=== PATIENT | male | born 1940 | race Asian ===

== ENCOUNTER 2017-04-21 10:54 | Inpatient (IN) | payer OTHER ==
[2017-04-21] MEDS: METHYLPREDNISOLONE 125 MG INJ IV (11:48)
[2017-04-21] MEDS: SODIUM CHLORIDE 0.9% 1L BAG IV* (11:49)
[2017-04-21] MEDS: IPRATROPIUM (NEB) 0.5 MG/2.5 ML AMP INH (11:50)
[2017-04-21] MEDS: CEFEPIME 2GM/50 ML (PMX) 50 ML IVPB (11:50)
[2017-04-21] MEDS: ALBUTEROL 0.5% (NEB) 2.5 MG/0.5 ML AMP INH (11:51)
[2017-04-21 12:24] LABS: ABNORMAL IP MESSAGE 1; HEMATOCRIT 42.4 % (42.0-52.0); HEMOGLOBIN 14.4 g/dl (14.0-18.0); MEAN CORPUSCULAR HEMOGLOBIN 28.7 pg (29.0-33.0); MEAN CORPUSCULAR VOLUME 84.6 fl (82.0-101.0); PLATELET COUNT 273 10^3/UL (140-415); POSITIVE DIFF @See below; RED BLOOD COUNT 5.01 10^6/ul (4.70-6.10); RED CELL DISTRIBUTION WIDTH 13.3 % (11.5-14.5)
[2017-04-21 12:24] LABS: WHITE BLOOD COUNT 32.3 10^3/ul (4.8-10.8)
[2017-04-21 12:25] LABS: ALANINE AMINOTRANSFERASE 38 IU/L (13-69); ALBUMIN 3.1 g/dl (3.3-4.9); ALKALINE PHOSPHATASE 95 IU/L (42-121); ANION GAP 12 (8-16); ASPARTATE AMINO TRANSFERASE 19 IU/L (15-46); BILIRUBIN,INDIRECT 0.6 mg/dl (0-1.1); BILIRUBIN,TOTAL 0.6 mg/dl (0.2-1.3); BLOOD UREA NITROGEN 18 mg/dl (7-20); CALCIUM 8.2 mg/dl (8.4-10.2); CARBON DIOXIDE 33 mmol/L (21-31); CHLORIDE 93 mmol/L (97-110); CREATININE 0.45 mg/dl (0.61-1.24); GLUCOSE 172 mg/dl (70-220); POTASSIUM 4.5 mmol/L (3.5-5.1); SODIUM 133 mmol/L (135-144); TOTAL PROTEIN 6.2 g/dl (6.1-8.1)
[2017-04-21 12:26] LABS: ADD MAN DIFF? YES
[2017-04-21 12:31] LABS: LACTIC ACID 1.8 mmol/L (0.5-2.0)
[2017-04-21 12:31] LABS: INR 1.05; PROTIME 13.8 Sec (11.9-14.9); PT RATIO 1.1
[2017-04-21 12:32] LABS: PARTIAL THROMBOPLASTIN TIME 24.7 Sec (25.0-35.0)
[2017-04-21] MEDS: VANCOMYCIN 1 GM (PMX) 250 ML IVPB (12:35)
[2017-04-21 12:42] LABS: TROPONIN-I < 0.012 ng/ml (0.00-0.12)
[2017-04-21 12:46] LABS: AADO2 Arterial 315.6 mmHg (7.0-24.0); Allen Test ACCEPTAB; Arterial Base Excess 2.4 mmol/L (-3.0-3); Arterial Blood Gas Oxygen Sat 98.4 mmHG (95.0-100.0); Arterial COHb 0.3 % (0.0-3.0); Arterial Fraction of Oxyhgb 97.8 % (93.0-99.0); Arterial MetHb 0.3 % (0.0-1.5); Arterial Total Hemglobin 14.2 g/dl (12.0-18.0); Arterial pCO2 47.4 mmhg (35-45); Blood Gas IEPAP 15/5; Blood Gas PS 10; MODE MASK - BIPAP; Site Right Radial
[2017-04-21 13:02] LABS: ANISOCYTOSIS 1+ (0-0); BAND NEUTROPHILS #M 1.2 10^3/ul (0.0-0.6); BAND NEUTROPHILS % (M) 4 % (0-4); BURR CELLS 1+ (0-0); LYMPHOCYTES #M 0.3 10^3/ul (0.8-2.9); LYMPHOCYTES % (M) 1 % (15-51); MICROCYTOSIS 1+ (0-0); MONOCYTE #M 1.6 10^3/ul (0.3-0.9); MONOCYTES % (M) 5 % (0-11); PLATELET ESTIMATE NORMAL; POIKILOCYTOSIS 2+ (0-0); SEG NEUT #M 29.5 10^3/ul (1.7-7.5); SEGMENTED NEUTROPHILS (M) % 90 % (39-77)
[2017-04-21 13:20] LABS: ADD UMIC YES; UR ASCORBIC ACID NEGATIVE (NEGATIVE); UR BACTERIA FEW /HPF (NONE SEEN); UR BILIRUBIN (Dip) NEGATIVE (NEGATIVE); UR BLOOD (Dip) 1+ mg/dL (NEGATIVE); UR CLARITY CLEAR (CLEAR); UR COLOR YELLOW (YELLOW); UR GLUCOSE (Dip) 3+ mg/dL (NEGATIVE); UR KETONES (Dip) 1+ mg/dL (NEGATIVE); UR LEUKOCYTE ESTERASE (Dip) NEGATIVE Leu/ul (NEGATIVE); UR NITRITE (Dip) NEGATIVE (NEGATIVE); UR RBC 3 /HPF (0-5); UR SPECIFIC GRAVITY (Dip) 1.011 (1.003-1.030); UR TOTAL PROTEIN (Dip) 2+ mg/dl (NEGATIVE); UR UROBILINOGEN (Dip) NEGATIVE (NEGATIVE); UR WBC 1 /HPF (0-5)
[2017-04-21] MEDS ORDERED: ACETAMINOPHEN 325 MG TAB PO (14:30)
[2017-04-21] MEDS ORDERED: ONDANSETRON 4 MG INJ IV ×2 (14:30→16:30)
[2017-04-21 15:27] LABS: LACTIC ACID 3.6 mmol/L (0.5-2.0)
[2017-04-21] MEDS ORDERED: LORAZEPAM 1 MG TAB PO (16:30)
[2017-04-21] MEDS: DOCUSATE SODIUM 250 MG CAP PO (16:30)
[2017-04-21] MEDS ORDERED: GLUCOSE GEL 15 GRAM TUBE PO ×2 (17:00)
[2017-04-21] MEDS ORDERED: GLUCOSE GEL 15 GRAM TUBE BUCCAL (17:00)
[2017-04-21] MEDS: ALBUTEROL/IPRATROPIUM (NEB) 3 ML AMP HHN ×2 (17:00→21:32)
[2017-04-21] MEDS ORDERED: GLUCAGON 1 MG INJ IM (17:00)
[2017-04-21] MEDS ORDERED: DEXTROSE 50% 50 ML SYRINGE IV ×2 (17:00)
[2017-04-21] MEDS: INSULIN ASPART [NOVOLOG] 3 ML PEN SC ×2 (18:00→21:00)
[2017-04-21 18:56] LABS: CREATINE KINASE 27 IU/L (23-200)
[2017-04-21 19:01] LABS: MAGNESIUM 1.9 mg/dl (1.7-2.5)
[2017-04-21 19:07] LABS: TROPONIN-I 0.019 ng/ml (0.00-0.12)
[2017-04-21 19:11] LABS: CK-MB 1.09 ng/ml (0.0-2.4)
[2017-04-21 19:14] LABS: LACTIC ACID 2.9 mmol/L (0.5-2.0)
[2017-04-21] MEDS: HEPARIN 5,000 UNIT/0.5 ML VIAL SC (21:00)
[2017-04-21] MEDS: SALMETEROL/FLUTICASONE 250/50 INHA INH (21:01)
[2017-04-21] MEDS: CEFEPIME 1GM/50 ML (PMX) 50 ML IVPB (21:01)
[2017-04-21] MEDS: LACTOBACILLUS RHAMNOSUS CAP PO (21:01)
[2017-04-21] MEDS: ATORVASTATIN 40 MG TAB PO (21:01)
[2017-04-22 00:53] LABS: CREATINE KINASE 49 IU/L (23-200)
[2017-04-22 01:06] LABS: CK INDEX 3.3
[2017-04-22 01:07] LABS: TROPONIN-I < 0.012 ng/ml (0.00-0.12)
[2017-04-22] MEDS: ALBUTEROL/IPRATROPIUM (NEB) 3 ML AMP HHN ×6 (01:33→20:41)
[2017-04-22] MEDS: VANCOMYCIN IV PER PHARMACY XX (02:19)
[2017-04-22] MEDS: ACCU-CHEK XX (02:30)
[2017-04-22 06:42] LABS: ADD MAN DIFF? NO
[2017-04-22 06:52] LABS: WHITE BLOOD COUNT 28.3 10^3/ul (4.8-10.8)
[2017-04-22 06:52] LABS: ABNORMAL IP MESSAGE 1; BASOPHILS % 0.1 % (0.0-2.0); HEMATOCRIT 36.7 % (42.0-52.0); HEMOGLOBIN 12.3 g/dl (14.0-18.0); LYMPHOCYTES # 0.6 10^3/ul (0.8-2.9); MEAN CORPUSCULAR HEMOGLOBIN 29.1 pg (29.0-33.0); MEAN CORPUSCULAR HGB CONC 33.5 g/dl (32.0-37.0); MEAN PLATELET VOLUME 10.3 fl (7.4-10.4); MONOCYTES % 3.4 % (0.0-11.0); NEUTROPHIL # 26.5 10^3/ul (1.6-7.5); NEUTROPHILS % 93.8 % (39.0-77.0); PLATELET COUNT 204 10^3/UL (140-415); POSITIVE DIFF @See below; RED BLOOD COUNT 4.22 10^6/ul (4.70-6.10); RED CELL DISTRIBUTION WIDTH 13.6 % (11.5-14.5)
[2017-04-22 07:20] LABS: ANION GAP 13 (8-16); BLOOD UREA NITROGEN 18 mg/dl (7-20); CALCIUM 7.6 mg/dl (8.4-10.2); CARBON DIOXIDE 30 mmol/L (21-31); CHLORIDE 100 mmol/L (97-110); CHOLESTEROL 122 mg/dl (100-200); CREATININE 0.49 mg/dl (0.61-1.24); GLUCOSE 185 mg/dl (70-220); HDL CHOLESTEROL 40 mg/dl (31-75); LDL CHOLESTEROL,CALCULATED 61 mg/dl; POTASSIUM 4.6 mmol/L (3.5-5.1); SODIUM 138 mmol/L (135-144); TRIGLYCERIDES 106 mg/dl (0-149)
[2017-04-22] MEDS: INSULIN ASPART [NOVOLOG] 3 ML PEN SC ×3 (07:48→18:22)
[2017-04-22 08:12] LABS: THYROID STIMULATING HORMONE 0.105 MIU/L (0.465-4.680)
[2017-04-22] MEDS: CEFEPIME 1GM/50 ML (PMX) 50 ML IVPB ×2 (09:16→21:58)
[2017-04-22] MEDS: DOCUSATE SODIUM 250 MG CAP PO (09:17)
[2017-04-22] MEDS: HEPARIN 5,000 UNIT/0.5 ML VIAL SC ×2 (09:17→22:02)
[2017-04-22] MEDS: SALMETEROL/FLUTICASONE 250/50 INHA INH ×2 (09:18→22:03)
[2017-04-22] MEDS: LACTOBACILLUS RHAMNOSUS CAP PO ×2 (09:19→22:02)
[2017-04-22] MEDS: TIOTROPIUM 18 MCG CAPSULE INHA DEV INH (11:01)
[2017-04-22] MEDS: METHYLPREDNISOLONE 125 MG INJ IV (11:19)
[2017-04-22 11:25] LABS: AADO2 Arterial 249.5 mmHg (7.0-24.0); Allen Test ACCEPTAB; Arterial Base Excess 4.4 mmol/L (-3.0-3); Arterial Blood Gas Oxygen Sat 93.4 mmHG (95.0-100.0); Arterial COHb 0 % (0.0-3.0); Arterial Fraction of Oxyhgb 93.2 % (93.0-99.0); Arterial HCO3 28.3 mmol/L (22.0-26.0); Arterial MetHb 0.2 % (0.0-1.5); Arterial Total Hemglobin 14.4 g/dl (12.0-18.0); Arterial pCO2 39.9 mmhg (35-45); Blood Gas IEPAP 15/5; Blood Gas PS 10; MODE MASK - BIPAP; Site Right Radial
[2017-04-22 11:30] LABS: LACTIC ACID 2.1 mmol/L (0.5-2.0)
[2017-04-22] MEDS: VANCOMYCIN 750 MG in DEXTROSE 5% 150 ML IVPB (14:00)
[2017-04-22 14:06] LABS: HEMOGLOBIN A1C 9.1 % (0-5.9)
[2017-04-22] MEDS: LORAZEPAM 2 MG INJ IV (16:12)
[2017-04-22] MEDS: METOPROLOL 25 MG TAB PO (16:35)
[2017-04-22 16:37] LABS: HEMOGLOBIN A1C 9.1 % (0-5.9)
[2017-04-22] MEDS: METHYLPREDNISOLONE 40 MG INJ IV ×2 (20:08→23:56)
[2017-04-22] MEDS: ATORVASTATIN 40 MG TAB PO (22:02)
[2017-04-23] MEDS: INSULIN ASPART [NOVOLOG] 3 ML PEN SC ×7 (00:12→20:29)
[2017-04-23] MEDS: METOPROLOL 25 MG TAB PO ×2 (01:36→09:05)
[2017-04-23] MEDS: ALBUTEROL/IPRATROPIUM (NEB) 3 ML AMP HHN ×5 (02:04→20:09)
[2017-04-23] MEDS: ACCU-CHEK XX (02:32)
[2017-04-23] MEDS: METHYLPREDNISOLONE 40 MG INJ IV ×3 (06:03→17:34)
[2017-04-23] MEDS: NACL 3% FOR INHALATION 15 ML NEBU NEB (06:03)
[2017-04-23 06:33] LABS: ADD MAN DIFF? NO
[2017-04-23 06:35] LABS: WHITE BLOOD COUNT 29.5 10^3/ul (4.8-10.8)
[2017-04-23 06:35] LABS: ABNORMAL IP MESSAGE 1; BASOPHIL # 0.1 10^3/ul (0.0-0.1); BASOPHILS % 0.2 % (0.0-2.0); HEMATOCRIT 36.9 % (42.0-52.0); HEMOGLOBIN 12.3 g/dl (14.0-18.0); LYMPHOCYTES # 0.3 10^3/ul (0.8-2.9); LYMPHOCYTES % 1.2 % (15.0-51.0); MEAN CORPUSCULAR HEMOGLOBIN 28.9 pg (29.0-33.0); MEAN CORPUSCULAR HGB CONC 33.3 g/dl (32.0-37.0); MEAN CORPUSCULAR VOLUME 86.8 fl (82.0-101.0); MEAN PLATELET VOLUME 10.1 fl (7.4-10.4); MONOCYTE # 0.8 10^3/ul (0.3-0.9); MONOCYTES % 2.6 % (0.0-11.0); NEUTROPHIL # 28.1 10^3/ul (1.6-7.5); NEUTROPHILS % 95.2 % (39.0-77.0); PLATELET COUNT 206 10^3/UL (140-415); POSITIVE DIFF @See below; RED BLOOD COUNT 4.25 10^6/ul (4.70-6.10); RED CELL DISTRIBUTION WIDTH 13.5 % (11.5-14.5)
[2017-04-23 07:00] LABS: LACTIC ACID 1.7 mmol/L (0.5-2.0)
[2017-04-23 07:19] LABS: ALANINE AMINOTRANSFERASE 68 IU/L (13-69); ALBUMIN 2.1 g/dl (3.3-4.9); ALKALINE PHOSPHATASE 97 IU/L (42-121); ANION GAP 9 (8-16); ASPARTATE AMINO TRANSFERASE 60 IU/L (15-46); BILIRUBIN,INDIRECT 0.4 mg/dl (0-1.1); BILIRUBIN,TOTAL 0.4 mg/dl (0.2-1.3); BLOOD UREA NITROGEN 27 mg/dl (7-20); CALCIUM 7.9 mg/dl (8.4-10.2); CARBON DIOXIDE 31 mmol/L (21-31); CHLORIDE 100 mmol/L (97-110); CREATININE 0.46 mg/dl (0.61-1.24); GLUCOSE 173 mg/dl (70-220); POTASSIUM 4.6 mmol/L (3.5-5.1); SODIUM 135 mmol/L (135-144); TOTAL PROTEIN 4.9 g/dl (6.1-8.1)
[2017-04-23 07:20] LABS: ALBUMIN/GLOBULIN RATIO 0.75
[2017-04-23] MEDS: DOCUSATE SODIUM 250 MG CAP PO ×2 (09:00)
[2017-04-23] MEDS: SALMETEROL/FLUTICASONE 250/50 INHA INH ×2 (09:01→20:39)
[2017-04-23] MEDS: TIOTROPIUM 18 MCG CAPSULE INHA DEV INH (09:03)
[2017-04-23] MEDS: LACTOBACILLUS RHAMNOSUS CAP PO ×2 (09:04→20:33)
[2017-04-23] MEDS: CEFEPIME 1GM/50 ML (PMX) 50 ML IVPB ×2 (09:04→20:34)
[2017-04-23] MEDS: HEPARIN 5,000 UNIT/0.5 ML VIAL SC ×2 (09:17→20:32)
[2017-04-23 09:22] LABS: ANISOCYTOSIS 1+ (0-0); BAND NEUTROPHILS #M 4.7 10^3/ul (0.0-0.6); BAND NEUTROPHILS % (M) 16 % (0-4); LYMPHOCYTES #M 0.2 10^3/ul (0.8-2.9); LYMPHOCYTES % (M) 1 % (15-51); MICROCYTOSIS 1+ (0-0); PLATELET ESTIMATE NORMAL; POIKILOCYTOSIS 3+ (0-0); POLYCHROMASIA 2+ (0-0); REACTIVE LYMPHOCYTES #M 0.2 10^3/ul (0.0-0.0); REACTIVE LYMPHOCYTES% (M) 1 % (0-0); SEG NEUT #M 25.6 10^3/ul (1.7-7.5); SEGMENTED NEUTROPHILS (M) % 82 % (39-77); SMUDGE%M 4 % (0-0)
[2017-04-23] MEDS: INSULIN GLARGINE [LANtus] 3 ML PEN SC (09:35)
[2017-04-23] MEDS: VANCOMYCIN 750 MG in DEXTROSE 5% 150 ML IVPB (14:38)
[2017-04-23 17:52] LABS: THYROID STIMULATING HORMONE 0.125 MIU/L (0.465-4.680)
[2017-04-23 19:24] LABS: TROPONIN-I < 0.012 ng/ml (0.00-0.12)
[2017-04-23] MEDS: METOPROLOL 50 MG TAB PO (20:33)
[2017-04-23] MEDS: ATORVASTATIN 40 MG TAB PO (20:33)
[2017-04-25 16:41] LABS: NIL 0.01 IU/mL; NIL 0.02 IU/mL; QUANTIFERON(R)-TB GOLD INDETERMINATE (NEGATIVE); TB-NIL <0.00 IU/mL
== END 2017-04-23 21:40 | disposition short-term general hospital (02) | DRG 193 ==
LOC: ICU 14:29 → E/R 10:54
DX: J18.9 Pneumonia, unspecified organism (principal); J96.01 Acute respiratory failure with hypoxia; J44.0 Chronic obstructive pulmonary disease with (acute) lower respiratory infection; J44.1 Chronic obstructive pulmonary disease with (acute) exacerbation; E11.9 Type 2 diabetes mellitus without complications; Z72.0 Tobacco use; I10 Essential (primary) hypertension; M81.0 Age-related osteoporosis without current pathological fracture; I71.4 Abdominal aortic aneurysm, without rupture
CPT/HCPCS: 36415; 36600; 71045; 71250; 80048; 80053; 80061; 81001; 82550; 82553; 82803; 82962; 83036; 83605; 83735; 84100; 84443; 84484; 85025; 85610; 85730; 86480; 87040; 87081; 87086; 87400; 93005; 93306; 93970; 94640; 94644; 94660; 94664; 96372; 96374; 96375; 96376; 99291-25